=== PATIENT | male | born 1960 | race Caucasian/White ===

== ENCOUNTER 2017-02-05 06:23 | Inpatient (IN) | payer OTHER ==
--- NOTE | ~2017-02-05 | EKG ---
PATIENT: DOM VALENZUELA UNIT #: [id number] Ventricular Rate: 65 BPM Atrial Rate: 65 BPM P-R Interval: 224 ms QRS Duration: 96 ms Q-T Interval: 412 ms QTC Calculation(Bezet): 428 ms P Coy: 67 degrees Calculated R Coy: 60 degrees Calculated T Coy: 52 degrees Diagnosis Line: Atrial-paced rhythm with prolonged AV conduction Diagnosis Line: Abnormal ECG Diagnosis Line: No previous ECGs available Diagnosis Line: Confirmed by EMELY PALACIOS MD ([id number]) on 02/05/2017 Diagnosis Line: 11:31:58 PM INTERPRETING MD: PHILIP JOHN
--- NOTE | ~2017-02-05 | DS ---
Unit #: [id number] #: [id number] Patient: DOM VALENZUELA [id number] [address] [place], [place] [address] [id number] I MR#: [id number] NAME: DOM VALENZUELA ROOM: 454 Age: 56 Sex: M Admission Date: 02/05/2017 : 1960 Discharge Date: 02/07/2017 Attending Physician: Abrahan Skinner M.D. Primary Care Physician: Generic Doctor Not In System DISCHARGE SUMMARY CHIEF COMPLAINT Left foot pain. HISTORY OF PRESENT ILLNESS This patient is a 56-year-old male with left calcaneal fracture treated nonoperatively 7 years ago. He now has a calcaneal malunion with posttraumatic subtalar arthritis. He has failed to respond to conservative care. He has obvious dislocation of his peroneal tendons. He will, therefore, undergo posterior distraction, subtalar fusion, as well as reconstruction of the perineal retinaculum. HOSPITAL COURSE The patient was taken to the operating room on the date of admission where he underwent posterior distraction, subtalar fusion using anterior iliac crest bone graft, as well as peroneal tenodesis and peroneal retinacular reconstruction. There were no operative complications. He had a stable postoperative course. Pain was controlled with oral Percocet and IV morphine. Dressing was changed on the second postoperative day. Wounds were healing well. He remained afebrile with stable vital signs. He was seen by physical therapy and instructed on how to remain nonweightbearing on his affected side. He was discharged on the second postoperative day. FINAL DIAGNOSES 1. Left calcaneal malunion. 2. Left subtalar joint arthritis. 3. Left peroneus brevis tear. 4. Left peroneal tendon dislocation. PLAN/DISPOSITION 1. The patient is discharged home. He will keep the dressing clean, dry and intact. He will continue ice and elevation. He will remain strictly nonweightbearing for 3 months. 2. Discharge medications remain the same as his home medications with the addition of Percocet 10/325 mg 1 or 2 p.o. q.4-6 hours p.r.n. pain (dispense 50) and Xarelto 10 mg p.o. daily for 12 days. 3. Follow up in my office in 2 weeks for dressing change, suture removal and application of a cast. Dictated by.Mitch Skinner M.D. [facility]/finn Unit #: [id number] #: [id number] Patient: DOM VALENZUELA TD: 02/07/2017 09:01 JOB #: [id number] DISCHARGE SUMMARY Page 1 of 1 X Griselda Skinner MD X DISCHARGE SUMMARY
--- NOTE | ~2017-02-05 | CO ---
Unit #: [id number] #: [id number] Patient: DOM VALENZUELA [id number] [address] [place], [place] [address] [id number] MR#: [id number] NAME: DOM VALENZUELA ROOM: 454 Age: 56 Sex: M Admission Date: 02/05/2017 : 1960 Attending Physician: Abrahan Skinner M.D. Primary Care Physician: Generic Doctor Not In System Requesting Physician: Abrahan Skinner M.D. Consultation Date: 02/05/2017 CONSULTATION REPORT REASON FOR CONSULT Consult on medical management. HISTORY OF PRESENT ILLNESS This is a 56-year-old male with a history of coronary artery disease, status post coronary artery bypass graft and pacemaker placement in the past. He has had previous heart attacks and amputation in the past who presented for elective left subtalar fusion and anterior iliac crest graft per Dr. Skinner. The patient denies any pain at this time. His past history is significant for GERD, coronary artery disease. He denies any chest pain, headaches, shortness of breath, or difficulty breathing. Denies any constipation or diarrhea at this time. Patient lives in [place]. I am evaluating patient with his parents today in attendance. PAST MEDICAL HISTORY Significant for: 1. Coronary artery disease. 2. Hyperlipidemia. 3. Hypertension. 4. History of arrhythmias in the past. 5. History of alcohol abuse. 6. Tobaccoism. PAST SURGICAL HISTORY 1. Coronary artery bypass graft. 2. Pacemaker. 3. Right toe amputation. HOME MEDICATIONS Include: 1. Fenofibrate 134 mg p.o. daily. 2. Zestril 10 mg p.o. daily. 3. Diclofenac sodium 75 mg p.o. b.i.d. 4. Simvastatin 40 mg h.s. 5. Lopressor 50 mg p.o. b.i.d. 6. NitroQuick 0.4 mg sublingual daily. 7. Omeprazole 20 mg p.o. daily. 8. Flonase nasal one squirt in each nostril b.i.d. 9. [place] 7.5/325 one tab p.o. q.i.d. ALLERGIES Erythromycin base. SOCIAL HISTORY Unit #: [id number] #: [id number] Patient: DOM VALENZUELA Quit smoking about 2 weeks ago. Drinks in the past. FAMILY HISTORY Significant for bipolar depression, hyperlipidemia, hypertension, coronary artery disease. REVIEW OF SYSTEMS A complete 10-point review of systems has been done and pertinent positives noted. PHYSICAL EXAMINATION VITAL SIGNS: Blood pressure 102/63, pulse 76, respiratory rate 18, temperature 97.2. GENERAL: He was comfortable, not in distress. He denied much pain at this time though he was somewhat drowsy from anesthesia. EYES: Pupils were equal and react to light and accommodation. EARS, NOSE, THROAT: No pharyngeal erythema. NECK: Supple without thyromegaly. CHEST: Scars from his sternotomy as well as his pacemaker. LUNGS: He did have some expiratory wheezing bilaterally. ABDOMEN: Full, moves with respirations, soft. No palpable organomegaly. RECTAL: Deferred. EXTREMITIES: Left foot was in surgical dressing. His right foot is missing a toe. Mild 1+ bilateral lower extremity edema. NEUROLOGIC: Alert and oriented x3. Moves all extremities spontaneously. Cranial nerves II-XII are grossly intact. LYMPHATICS: No enlarged peripheral lymphadenopathy that I could appreciate. DIAGNOSTIC STUDIES LABORATORY: Set of cardiac markers with troponin less than 0.03, this was done about 1800. ASSESSMENT AND PLAN 1. Postop left foot surgery. This is stable at this time. Managed by primary team. 2. History of coronary artery disease, hypertension, hyperlipidemia, atherosclerotic cardiovascular disease. Patient is asymptomatic. Continue his medications at this time. 3. He has no issues at this time. Will still avoid large volume shifts. 4. DVT prophylaxis. Anticoagulation is per Dr. Skinner on Xarelto 10 mg p.o. daily. 5. Will add Protonix 40 mg p.o. daily. 6. Will check some labs in the morning. Dr. Skinner, thank you for the opportunity to participate in the care of your patient. Dictated by... Keshav Reed/radha Unit #: [id number] #: [id number] Patient: DOM VALENZUELA TD: 02/05/2017 22:53 JOB #: [id number] CONSULTATION REPORT Page 1 of 1 X Ashley Guillen MD CONSULTATION REPORT
--- NOTE | ~2017-02-05 | EKG ---
PATIENT: DOM VALENZUELA UNIT #: [id number] Ventricular Rate: 75 BPM Atrial Rate: 75 BPM P-R Interval: 174 ms QRS Duration: 96 ms Q-T Interval: 408 ms QTC Calculation(Bezet): 455 ms P [place]: 57 degrees Calculated R [place]: 63 degrees Calculated T [place]: 53 degrees Diagnosis Line: Normal sinus rhythm Diagnosis Line: Normal ECG Diagnosis Line: No previous ECGs available Diagnosis Line: Confirmed by EMELY PALACIOS MD ([id number]) on 02/05/2017 Diagnosis Line: 11:38:38 PM INTERPRETING MD: PHILIP JOHN
--- NOTE | ~2017-02-05 | HP ---
Unit #: [id number] #: [id number] Patient: DOM VALENZUELA [id number] [address] [address] [id number] I MR#: [id number] NAME: DOM VALENZUELA ROOM: Age: 56 Sex: M Admission Date: 02/05/2017 : 1960 Attending Physician: Abrahan Skinner M.D. HISTORY AND PHYSICAL CHIEF COMPLAINT Left foot pain. HISTORY OF PRESENT ILLNESS The patient is a 56-year-old male with previous history of left calcaneal fracture treated nonoperatively in 2009 and now has a calcaneal malunion with posttraumatic subtalar arthritis and loss of calcaneal height. CT scan documents a calcaneal malunion with severe degenerative arthritic change of the subtalar joint and cystic changes within the talar body. The patient is therefore admitted for posterior distraction and subtalar fusion using anterior iliac crest bone graft. The talar body cyst will be bone grafted concurrently. The peroneal retinaculum may require reconstruction along with deepening of the posterior fibular groove. Infuse bone morphogenic protein will be utilized because of the patient's history of smoking. PAST MEDICAL HISTORY 1. Alcohol abuse. 2. Myocardial infarction. 3. Coronary artery disease. 4. Hypercholesterolemia. 5. Hypertension. 6. Cardiac arrhythmia requiring pacemaker placement. MEDICATIONS 1. Aspirin. 2. Diclofenac. 3. Fenofibrate. 4. Fluticasone. 5. Gabapentin. 6. Lisinopril. 7. Metoprolol. 8. Nitrostat. 9. Omeprazole. 10. Simvastatin. ALLERGIES Erythromycin. PAST SURGICAL HISTORY 1. Coronary artery bypass graft. 2. Foot surgery. 3. Pacemaker placement. Unit #: [id number] #: [id number] Patient: DOM VALENZUELA SOCIAL HISTORY The patient is a 15 drink per week user of alcohol. He is a one pack per day smoker. FAMILY HISTORY Bipolar, depression, hypercholesterolemia, hypertension, coronary artery disease. PHYSICAL EXAMINATION EXTREMITIES: Examination of the left foot shows normal arch with widening of the heel. The heel is neutral. Ankle motion is normal. Subtalar motion is absent. The patient has tenderness along the sinus tarsi and along the peroneal tendon sheath. DIAGNOSTIC STUDIES IMAGING: Standing x-rays demonstrate loss of calcaneal height with decreased Bohler's angle, subtalar joint arthritis. The ankle joint is intact. There are numerous cystic changes within the talar body. There are some moderate arthritic changes within the ankle joint. ADMITTING DIAGNOSES 1. Left calcaneal malunion. 2. Left subtalar joint posttraumatic arthritis. 3. Left talar body cyst. 4. 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 PLAN The patient has failed conservative care. He will therefore undergo subtalar fusion using a posterior distraction technique to re-establish calcaneal height. We will utilize anterior iliac crest bone graft. Concurrently, the talar body cyst will be bone grafted. The peroneal retinaculum will be reconstructed. A calcaneal osteoplasty will be performed and the posterior distal fibular groove will be deepened. This procedure was described along of risks of bleeding, infection, nerve damage, need for further surgery in the future, prolonged recovery time, deep venous thrombosis, pulmonary embolism, anesthetic complications. The patient understands the above risks and agrees to proceed. He understands he will be nonweightbearing three months postoperative. Dictated by Abrahan Skinner M.D. [facility]/flori TD: 01/31/2017 09:18 JOB #: [id number] Unit #: [id number] #: [id number] Patient: DOM VALENZUELA HISTORY AND PHYSICAL Page 1 of 1 X Griselda Skinner MD X HISTORY AND PHYSICAL
--- NOTE | ~2017-02-05 | OR ---
Unit #: [id number] #: [id number] Patient: DOM VALENZUELA [id number] [address] [place], [place] [address] [id number] I MR#: [id number] NAME: DOM VALENZUELA ROOM: 454 Date of Procedure: 02/05/2017 Admission Date: 02/05/2017 Surgeon: Abrahan Skinner M.D. : 1960 Attending Physician: Abrahan Skinner M.D. OPERATIVE REPORT PREOPERATIVE DIAGNOSES 1. Left subtalar joint post-traumatic arthritis. 2. Left calcaneal malunion. 3. 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 4. Left peroneal tendon dislocation. POSTOPERATIVE DIAGNOSES 1. Left post-traumatic subtalar joint arthritis. 2. 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 3. Left peroneus brevis tear. 4. Left peroneal tendon dislocation. 5. Left calcaneal malunion. PROCEDURES PERFORMED 1. Left subtalar fusion, posterior distraction (68971). 2. Left peroneal retinacular reconstruction with posterior distal fibular groove deepening (10319). 3. Left peroneus brevis to longus tenodesis (30256). 4. Left talar bone cyst curettage and grafting (46936). 5. Left anterior iliac crest bone graft (40825). ASSISTANTS Frankie and Barbi. ANESTHESIA Popliteal saphenous block and general. INDICATIONS FOR SURGERY The patient is a 56-year-old male, who has sustained a calcaneal fracture 7 years ago, which was treated nonoperatively. The patient now has ongoing left lateral hindfoot pain and requires oral narcotics. He has failed to respond to conservative care. He is therefore to undergo subtalar fusion. The patient has an obvious calcaneal malunion with a 0 degree Boehler angle, significant erosive bone loss of the subtalar joint as well as large talar body cysts. The patient has obvious dislocation of the peroneal tendons as well. DESCRIPTION OF PROCEDURE The patient underwent popliteal saphenous block. He was taken to the operating room and placed in supine position. General anesthetic was induced. The left leg was identified as the correct operative location. The left foot, leg, and left anterior iliac crest were then prepped and Unit #: [id number] #: [id number] Patient: DOM VALENZUELA draped in the usual sterile fashion. The IV antibiotic protocol was followed. An 8 cm incision was made over the anterior iliac crest. Subcutaneous tissue was carefully divided. The extensor oblique muscle was retracted superiorly. The bone was exposed subperiosteally. Two 18 mm wide tricortical pieces of bone graft were then harvested using the microsagittal saw and power osteotome. A large amount of cancellous graft was then also harvested from the iliac crest using a curette. The wound was irrigated and packed with thrombin-soaked Gelfoam. The extensor oblique fascia was then repaired meticulously with 0 Vicryl [id number] sutures. Subcutaneous tissue was closed with 2-0 Vicryl and the skin was closed with skin ronen. The area was then infiltrated with 0.5% plain Marcaine. The left leg was then exsanguinated with an Esmarch bandage and the thigh tourniquet inflated to 300 mmHg. A 15 cm lateral longitudinal incision was made over the peroneal tendon sheath crossing the tip of the fibula and crossing the sinus tarsi. Subcutaneous tissue was divided. The peroneal tendon sheath was opened. The peroneus brevis tendon was torn at 75% of its diameter and was shredded. It was therefore resected and the proximal stump was preserved for tenodesis to the peroneus longus later in the case. The lateral calcaneal wall was exposed with subperiosteal dissection. The microsagittal saw and power osteotome were then used to remove the lateral calcaneal wall and this was morselized to be utilized for bone graft later in the case. The subtalar joint was distracted and the contents of the sinus tarsi were resected. All scar tissue was removed. The lamina marionette performer was placed. The power osteotome, curved curettes, and rongeurs were utilized to remove the articular cartilage and scar from both sides of the subtalar joint. The underlying subchondral bone was feathered with the power osteotome. Under C-arm fluoroscopic control, two large cysts were found in the talar body and curetted with a curved curette. The autogenous graft (cancellous graft) taken from the iliac crest were then packed into the cyst and impacted with a bone tamp. The two pieces of bone graft were then placed to distract the posterior subtalar joint and restore height to the calcaneus. Intraoperative C-arm fluoroscopy documented satisfactory temple of calcaneal height. Additional cancellous graft taken from the calcaneus was then impacted laterally and into all gaps. The Eugene cannulated screw system was used. Two 8 mm diameter Eugene fully threaded cannulated screws were placed from the posterior inferior heel into the talar body and talar neck. Excellent fixation was achieved. The microsagittal saw was then used to cut the posterolateral cortex of the distal fibula. This was then reflected posteriorly. The cancellous bone in the distal fibula was then resected with the rongeur. The cortex was then impacted into the fibula to deepen the posterior fibular groove. Four drill holes were then placed in the posterolateral edge of the fibula. The peroneus longus tendon was lengthened in a Z-fashion and then repaired with 2-0 Vicryl running locking suture. The peroneus brevis stump was then repaired to the peroneus longus with a running locking suture using 2-0 Vicryl. The tendons were then placed in the posterior distal fibular groove and the peroneal retinaculum was repaired back to the posterior distal fibula through the drill holes using 2-0 Vicryl. Unit #: [id number] #: [id number] Patient: DOM VALENZUELA The tourniquet was released. The wounds were irrigated. Bleeding was controlled with electrocautery. Deep tissues were closed with 2-0 Vicryl, subcutaneous tissue was closed with 3-0 Vicryl, and the skin was closed with running 3-0 nylon horizontal mattress sutures. Xeroform gauze, dressing, sponges, Webril, and a posterior fiberglass splint were applied. The patient was then transported to the recovery room in stable condition. ESTIMATED BLOOD LOSS 100 mL. COMPLICATIONS None. SPECIMENS None. TOURNIQUET TIME 1 hour 45 minutes. Dictated byKeshav Cuevas/ana TD: 02/06/2017 01:14 JOB #: [id number] OPERATIVE REPORT Page 1 of 1 X Griselda Skinner MD PROCEDURE OPERATIVE NOTE
[2017-02-05] MEDS ORDERED: LOW DOSE ASPIRI81 M1 PO (06:56)
[2017-02-05] MEDS ORDERED: ZESTRIL10 MG PO (06:56)
[2017-02-05] MEDS ORDERED: FENOFIBRATE134 MG PO (06:56)
[2017-02-05] MEDS ORDERED: VOLTAREN75 MG PO (06:57)
[2017-02-05] MEDS ORDERED: LOPRESSOR PO (06:57)
[2017-02-05] MEDS ORDERED: SIMVASTATIN40 MG PO (06:57)
[2017-02-05] MEDS ORDERED: FLONASE 0.05% N16 G1 (06:58)
[2017-02-05] MEDS ORDERED: NITROQUICK0.4 MG SL (06:58)
[2017-02-05] MEDS ORDERED: OMEPRAZOLE20 M1 PO (06:58)
[2017-02-05] MEDS ORDERED: NORCO 7.5-3251 EACH PO (06:59)
[2017-02-05 14:46] LABS: MB 2.6 ng/ml
[2017-02-06 03:03] LABS: BASOPHIL% 0.3 % (0-2.5); EOSINOPHIL# 0.2 X10e3 (0-0.7); EOSINOPHIL% 2.5 % (0.0-7.0); HEMATOCRIT 31.7 % (38.0-50.0); HEMOGLOBIN 10.4 gm/dL (13.0-16.0); LYMPHOCYTE# 1.6 X10e3 (1.0-3.5); LYMPHOCYTE% 17.9 % (17.0-45.0); MEAN CELL VOLUME 88.1 FL (83-96); MEAN CORPUSCULAR HEMOGLOBIN 28.9 PG (28-34); MEAN CORPUSCULAR HGB CONC 32.9 g/dL (30-36); MEAN PLATELET VOLUME 9.7 FL (6.5-11.5); MONOCYTE# 0.9 X10e3 (0-1.0); MONOCYTE% 10.2 % (3.0-12.0); NEUTROPHIL# 6.1 X10e3 (1.5-7.1); NEUTROPHIL% 69.1 % (40-75); PLATELET COUNT 177 X10e3 (140-420); RED CELL DISTRIBUTION WIDTH 13.6 % (11.0-15.5); WHITE BLOOD COUNT 8.8 X10e3 (4.0-10.5)
[2017-02-06 03:20] LABS: DIFF IND NO
[2017-02-06 03:57] LABS: BUN/CREATININE RATIO 14.16; CALCIUM SERUM 8.2 mg/dL (8.4-10.2); CREATININE SERUM 1.2 mg/dL (0.6-1.4); GLOM FILT RATE Estimated 67.7 mL/min (>60)
[2017-02-07 02:38] LABS: HEMATOCRIT 28.9 % (38.0-50.0); HEMOGLOBIN 9.5 gm/dL (13.0-16.0)
[2017-02-07] MEDS ORDERED: XARELTO10 MG PO (13:56)
[2017-02-07] MEDS ORDERED: PERCOCET10 PO (13:57)
== END 2017-02-07 14:23 | disposition home or self-care (01) | DRG 501 ==
LOC: CSUR 06:23 → C4B 19:04
PROVIDERS: Orthopaedic Surgery
PROC: 0YBL0ZZ Excision of Left Ankle Region, Open Approach (ICD-10-PCS; 2017-02-05)
PROC: 0QR Lower Bones, Replacement (ICD-10-PCS; 2017-02-05)
PROC: 0QB30ZZ Excision of Left Pelvic Bone, Open Approach (ICD-10-PCS; 2017-02-05)
PROC: 0SGJ04Z Fusion of Left Tarsal Joint with Internal Fixation Device, Open Approach (ICD-10-PCS; principal; 2017-02-05 09:00)
PROC: 0L8T0ZZ Division of Left Ankle Tendon, Open Approach (ICD-10-PCS; 2017-02-05 09:00)
DX: M19.172 Post-traumatic osteoarthritis, left ankle and foot (principal); D62 Acute posthemorrhagic anemia; I10 Essential (primary) hypertension; F10.10 Alcohol abuse, uncomplicated; I25.2 Old myocardial infarction; I25.10 Atherosclerotic heart disease of native coronary artery without angina pectoris; Z95.0 Presence of cardiac pacemaker; E78.00 Pure hypercholesterolemia, unspecified; Z79.82 Long term (current) use of aspirin; M85.672 Other cyst of bone, left ankle and foot; M25.375 Other instability, left foot; F17.210 Nicotine dependence, cigarettes, uncomplicated; S92.002A Unspecified fracture of left calcaneus, initial encounter for closed fracture; E78.5 Hyperlipidemia, unspecified; Z89.421 Acquired absence of other right toe(s); M93.272 Osteochondritis dissecans, left ankle and joints of left foot; G62.9 Polyneuropathy, unspecified; Z86.14 Personal history of Methicillin resistant Staphylococcus aureus infection; J44.9 Chronic obstructive pulmonary disease, unspecified
CPT/HCPCS: 80048; 82550; 82553; 84484; 85014; 85018; 85025; 93005; 94760; 97110; 97116; 97162; 97530; C1713; J0690; J2250; J2270; J2405; J2795; J3010; J3370